=== PATIENT | male | born 1975 | race Hispanic/Latino ===

== ENCOUNTER 2024-04-20 17:50 | Emergency (ER) | payer OTHER, SELFPAY ==
[2024-04-20 17:52] VITALS: BP 134/88
[2024-04-20 17:57] LABS: Glucose - Point of Care 203 mg/dl (70-99)
--- NOTE | 2024-04-20 19:14 | ED.GENMED ---
History of Present Illness
General
Chief Complaint: Weakness
Time Seen by Provider: 04/20/24 19:03
History of Present Illness
History of Present Illness:
Patient is a 48-year-old male with history of diabetes, hypertension, hyperlipidemia, depression presenting to the emergency department generalized weakness. Patient states that about a week ago he came back home from [place]. 3 days ago he was
started on a new diabetes medication (dapagliflozin). He states that since then he has been extremely weak tired and shaky. Yesterday and the day before he did feel lightheaded dizzy when he went from sitting to standing. He has only had about 1
to 2 glasses of water a day. Does drink sugar-free juices. No fevers or chills. No cough congestion runny nose. No chest pain or difficulty breathing. No nausea vomiting diarrhea. No melena or hematochezia. No new rashes. No urinary
symptoms. He does feel as if the component could be dehydration. No palpitations.
Phy Exam
Physical Exam
Physical Exam:
GENERAL: in no acute distress
HEENT: normocephalic, extraocular movements intact, moist oral mucosa
NECK: normal inspection
RESPIRATORY: no respiratory distress, clear to auscultation bilaterally
CARDIOVASCULAR: regular rate and rhythm
ABDOMEN/: soft, non-distended, non-tender to palpation, no rebound or guarding
EXTREMITIES: non-tender, no edema/swelling
NEUROLOGIC: awake and alert, moves all extremities
SKIN: warm
Course
Orders/Labs/Results
Orders:
Orders
04/20/24 19:14
Electrocardiogram (*1) Urgent
Reason for Study: Vertigo / Dizzy
EKG- Treatment ONCE
0.9% Sodium Chloride 1000 ml [Nss] 1,000 ml IV BOLUS
04/20/24 19:52
Basic Metabolic Panel Urgent
COVID-19 Antigen Urgent
Source: Nasal Swab
Complete Blood Count/With Diff Urgent
Abnormal Lab Results
04/20/24 04/20/24
17:55 19:52
WBC 12.7 H 10^3/uL
(4.8-10.8)
MPV 10.8 H fL
(7.4-10.4)
Abs Immat Gran (auto) 0.1 H 10^3/uL
(0-0.05)
Absolute Neuts (auto) 8.0 H 10^3/uL
(1.4-6.5)
Absolute Monos (auto) 1.1 H 10^3/uL
(0.1-0.6)
Immature Gran % 0.6 H %
(0-0.5)
Sodium 133 L mmol/L
(135-145)
Chloride 97 L mmol/L
(98-107)
BUN 26 H mg/dl
(9-20)
Creatinine 1.4 H mg/dL
(0.7-1.3)
Glucose 188 H mg/dl
(70-99)
POC Glucose 203 H mg/dl
(70-99)
04/20/24 19:52
04/20/24 19:52
Vital Signs
Initial and Last Documented VS:
Initial Vital Signs
Temp Pulse Resp BP Pulse Ox
98.5 F 102 20 134/88 99
04/20/24 17:52 04/20/24 17:52 04/20/24 17:52 04/20/24 17:52 04/20/24 17:52
Last Documented Vital Signs
Temp Pulse Resp BP Pulse Ox
98.5 F 102 20 134/88 95
04/20/24 17:52 04/20/24 17:52 04/20/24 17:52 04/20/24 17:52 04/20/24 19:57
MDM/Problems Addressed
Differential Diagnosis Includes:
Patient is a 48, with history of diabetes, hypertension, hyperlipidemia, depression presenting to the emergency department with generalized weakness for the past 3 days and episodic near syncope when going from sitting to standing. Vitals here are
notable for being afebrile with normal blood pressure. Exam does show well-hydrated male with no acute findings. Differential is broad but could be viral versus metabolic derangement. Could be anemia though less likely. Could be hypoglycemia
though Accu-Chek here was normal. Near syncope does sound orthostatic in nature as it is only from sitting to standing. He is asymptomatic now. Will check blood work EKG covid swab and give IV fluids.
*Critical Care Note
Total Time (30-74mins, 75-104mins- exclusive of procedures): Not Applicable
Update Note
Update Note:
On reassessment patient resting comfortably. He does feel slightly better after the IV fluids. Blood work does show a creatinine of 1.4. No prior to compare to. COVID swab negative. EKG per my interpretation without any signs of arrhythmia,
blocks, prolonged intervals. Patient tolerating p.o. He is stable for discharge. He will follow-up with his PCP to get repeat blood work to evaluate the kidney.
ED Attending Note
-
Portions of this chart may have been created with voice recognition software.� Occasional wrong word or��sound alike� substitutions may have occurred due to the inherent limitations of voice recognition software.
Discharge Plan
Departure
Patient Disposition: Home (Routine Discharge)
Date of Disposition: 04/20/24
Time of Disposition: 21:00
Patient with high blood pressure during this ER visit?: No
Discharge Problem:
Generalized weakness, Dehydration
Instructions: Fatigue (DC)
Referrals:
Deb Dimas MD [Family Provider] -
Activity Restrictions/Additional Instructions:
You were seen in the Emergency Department today for weakness. While you were here we performed blood work, which did show a creatinine of 1.4 Please follow up with your PCP to have it re-evaluated.
We would like for you to follow up with your primary care physician for further evaluation. If you experience fever, worsening of your symptoms, or develop any other new or concerning symptoms, please return to the Emergency Department immediately.
Please see the attached sheet for additional information.
Interventions
Interventions:
*Risk Screen - Suicide Last Done: 04/20/24 17:52
*General Assessment Last Done: 04/20/24 17:52
*Neglect/Abuse Screening Last Done: 04/20/24 17:52
ED- Fall Risk Assessment Last Done: 04/20/24 20:21
*ED COVID-19 Vaccine History Last Done: 04/20/24 20:20
ED- Cardiac Assessment Last Done: 04/20/24 20:21
ED- Neurological Assessment Last Done: 04/20/24 20:21
ED- Pulmonary Assessment Last Done: 04/20/24 20:21
Discharge Date and Time
Print Language: LATVIAN
[2024-04-20] MEDS: NSS 1000 IV (19:54)
[2024-04-20 20:03] LABS: % Basophils 0.9 % (0-2); % Eosinophils 1.3 % (0-6); % Immature Granulocytes 0.6 % (0-0.5); % Lymphocytes 25.3 % (20.5-51.1); % Monocytes 8.5 % (1.7-9.3); % Neutrophils 63.4 % (42.2-75.2); Absolute Basophils 0.1 10^3/uL (0-0.2); Absolute Eosinophils 0.2 10^3/uL (0-0.7); Absolute Immature Granulocytes 0.1 10^3/uL (0-0.05); Absolute Lymphocytes 3.2 10^3/uL (1.2-3.4); Absolute Monocytes 1.1 10^3/uL (0.1-0.6); Hematocrit 42.1 % (39.0-52.0); Hemoglobin 14.3 g/dL (13.0-18.0); Mean Corpuscular Hgb 29.1 pg (27.0-31.0); Mean Corpuscular Volume 85.7 fL (80.0-94.0); Mean Platelet Volume 10.8 fL (7.4-10.4); Nucleated Red Blood Cells % 0 % (-); Platelet Count 345 10^3/uL (130-400); Red Blood Cell Count 4.91 10^6/uL (4.70-6.10); Red Cell Dist. Width 11.8 % (11.5-14.5); White Blood Cell Count 12.7 10^3/uL (4.8-10.8)
[2024-04-20 20:16] LABS: Blood Urea Nitrogen 26 mg/dl (9-20); COVID-19 Antigen Negative (Negative); Calcium 10.1 mg/dl (8.4-10.2); Carbon Dioxide 24 mmol/L (22-30); Chloride 97 mmol/L (98-107); Glucose 188 mg/dl (70-99); Potassium 4.4 mmol/L (3.5-5.1); Sodium 133 mmol/L (135-145); eGFR > 60.00
[2024-04-20 20:18] VITALS: BMI 46.9
[2024-04-20 21:10] VITALS: BP 94/65
[2024-04-20 21:13] VITALS: BP 139/86
[2024-04-20 21:46] VITALS: BP 139/86
== END 2024-04-20 21:48 | disposition home or self-care (01) ==
LOC: EMR 17:50
PROVIDERS: EMERGENCY PHYSICIAN Student in an Organized Health Care Education/Training Program; FAMILY PHYSICIAN Student in an Organized Health Care Education/Training Program
DX: E86.0 Dehydration (principal); R53.1 Weakness; R42 Dizziness and giddiness; E11.9 Type 2 diabetes mellitus without complications; E78.5 Hyperlipidemia, unspecified; I10 Essential (primary) hypertension; F32.A Depression, unspecified; Z91.041 Radiographic dye allergy status
CPT/HCPCS: 99284; 96360; 80048; 82962; 85025; 87811; 93005